=== PATIENT | female | born 1965 | race Caucasian/White ===

== ENCOUNTER 2017-01-21 13:45 | Emergency (ER) | payer MEDICAID, OTHER ==
[2017-01-21 14:15] VITALS: BP 114/58
[2017-01-21] MEDS ORDERED: Ketorolac 60 MG/2 ML SDV IM ONE (14:34)
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
== END 2017-01-21 14:54 | disposition home or self-care (01) ==
LOC: JD.ED 13:45
DX: M54.6 Pain in thoracic spine (principal); M54.5 Low back pain; F17.210 Nicotine dependence, cigarettes, uncomplicated; Z88.5 Allergy status to narcotic agent
CPT/HCPCS: 96372; 99283; J1885

== ENCOUNTER 2017-02-13 14:15 | Emergency (ER) | payer SELFPAY ==
[2017-02-13 14:31] VITALS: BP 124/69
[2017-02-13] MEDS ORDERED: Ketorolac 60 MG/2 ML SDV IM ONE (14:53)
[2017-02-13] MEDS ORDERED: predniSONE 20 MG Tab PO ONE (14:53)
[2017-02-13] MEDS ORDERED: Cyclobenzaprine 10 MG Tab PO ONE (14:53)
[2017-02-13] MEDS ORDERED: HYDROmorphone 1 MG/ML Syringe IM ONE (14:53)
--- NOTE | 2017-02-13 15:02 | EDM.PDOC ---
ED HPI GENERAL MEDICAL PROBLEM - General Chief Complaint: Back Pain or Injury Stated Complaint: BACK PAIN Time Seen by Provider: 02/13/17 14:45 Source of Information: Reports: Patient History Limitations: Reports: No Limitations - History of Present Illness INITIAL COMMENTS - FREE TEXT/NARRATIVE: Patient is a 51-year-old female with a history herniated disc to the lumbar spine. States approximately 3 weeks ago while working at [employer] she developed pain to the right side of her low back. She was seen in the ED and diagnosed with a muscle strain. Prescribed flexeril and hydrocodone. Since then the pain has not improved but has worsened. Pain is mostly now to left side of her lower back. Pain is worsened with palpation and movement. She has intermittent pain running down the posterior aspect of the left leg. She denies any saddle anesthesia, incontinence to urine or stool, weakness, altered walking, or any concerning neurological deficits. She took the full course of Flexeril as prescribed. She continues to take hydrocodone intermittently for pain. She is also taking ibuprofen. She presents today because of worsening pain. Left Lower Back Pain Score (Numeric/FACES): 8 - Related Data Allergies Allergy/AdvReac Type Severity Reaction Status Date / Time acetaminophen [From Vicodin] Allergy Itching Verified 02/13/17 14:32 hydrocodone [From Vicodin] Allergy Itching Verified 02/13/17 14:32 naproxen Allergy Tachycardia Verified 01/01/16 17:29 Home Meds: Home Meds SUMAtriptan [Imitrex] 10 mg PO ASDIRECTED PRN 01/21/17 [History] Cyclobenzaprine [Flexeril] 10 mg PO TID PRN #15 tablet 02/13/17 [Rx] Prednisone [IMW: predniSONE] 40 mg PO WITHBREAKFAST #10 tab 02/13/17 [Rx] Past Medical History Musculoskeletal History: Reports: Back Pain, Chronic Psychiatric History: Reports: Anxiety - Past Surgical History Female Surgical History: Reports: Tubal Ligation Social & Family History - Tobacco Use Smoking Status *Q: Current Every Day Smoker Years of Tobacco use: 30 Packs/Tins Daily: 0.5 - Caffeine Use Caffeine Use: Reports: Coffee - Recreational Drug Use Recreational Drug Use: No ED ROS GENERAL - Review of Systems Review Of Systems: ROS reveals no pertinent complaints other than HPI. ED EXAM,LOWER BACK PAIN/INJURY - Physical Exam Exam: See Below Exam Limited By: No Limitations General Appearance: Alert, WD/WN, Mild Distress Ears: Hearing Grossly Normal Nose: Normal Inspection Throat/Mouth: Normal Voice, No Airway Compromise Neck: Normal Inspection, Supple Respiratory/Chest: No Respiratory Distress, Lungs Clear, Normal Breath Sounds, No Accessory Muscle Use Cardiovascular: Normal Peripheral Pulses, Regular Rate, Rhythm, No Murmur GI/Abdominal: Normal Bowel Sounds, Soft, Non-Tender, No Organomegaly, No Distention Back Exam: Normal Inspection, Decreased Range of Motion (Secondary to pain in the low back), Other (No vertebral tenderness noted on palpation. Pain noted to the left lower back with palpation along the SI joint. Straight leg left and right were both negative. No sensory motor deficits noted.) Extremities: Normal Inspection, Normal Range of Motion, Non-Tender, No Pedal Edema, Normal Capillary Refill Neurological: Alert, Normal Mood/Affect, Normal Dorsiflexion, CN II-XII Intact, Normal Plantar Flexion, Normal Gait, No Motor/Sensory Deficits, Oriented x 3 Psychiatric: Normal Affect, Normal Mood Skin Exam: Warm, Dry, Intact, Normal Color Course - Vital Signs Last Recorded V/S: Last Vital Signs Temp 98 F 02/13/17 14:28 Pulse 89 02/13/17 14:28 Resp 16 02/13/17 14:28 BP 124/69 02/13/17 14:28 Pulse Ox 100 02/13/17 14:28 - Orders/Labs/Meds Meds: Medications Discontinued Medications Generic Name Dose Route Start Last Admin Trade Name Jasonq PRN Reason Stop Dose Admin Cyclobenzaprine HCl 10 mg 02/13/17 14:53 02/13/17 15:00 Flexeril PO 02/13/17 14:54 10 mg ONETIME ONE Administration Hydromorphone HCl 0.5 mg 02/13/17 14:53 02/13/17 15:02 Dilaudid IM 02/13/17 14:54 0.5 mg ONETIME ONE Administration Ketorolac Tromethamine 60 mg 02/13/17 14:53 02/13/17 15:01 Toradol IM 02/13/17 14:54 60 mg ONETIME ONE Administration Prednisone 40 mg 02/13/17 14:53 02/13/17 15:00 Prednisone PO 02/13/17 14:54 40 mg ONETIME ONE Administration - Re-Assessments/Exams Free Text/Narrative Re-Assessment/Exam: Ordered Dilaudid 0.5 mg IM, Toradol 60 mg IM, Flexeril 10 mg by mouth, and prednisone 40 mg by mouth. Pain improved. She is ready to be discharged home. Discharge instructions as documented. Departure - Departure Time of Disposition: 14:58 Disposition: Home, Self-Care 01 Condition: Good Clinical Impression: Sacroiliac joint dysfunction of left side Left-sided low back pain with left-sided sciatica Qualifiers: Chronicity: acute Qualified Code(s): M54.42 - Lumbago with sciatica, left side - Discharge Information Prescriptions: Cyclobenzaprine [Flexeril] 10 mg PO TID PRN #15 tablet PRN Reason: Spasms Prednisone [IMW: predniSONE] 40 mg PO WITHBREAKFAST #10 tab Instructions: Back Pain, Adult, Sciatica, [id number] Referrals: Hosea Roman MD [Primary Care Provider] - Forms: ED Department Discharge, ED Return to Work/School Form Additional Instructions: Take the Flexeril and prednisone as prescribed. Utilize ibuprofen as needed for pain. Do not exceed 2400mg in a 24-hour period. Take the medications with food and water. Refrain from any activities that cause worsening pain. Follow-up with her PCP in the next week for reevaluation. MRI of your low back may be required along with physical therapy. No driving today since receiving a sedative medication. No driving while taking the Flexeril. Return to the ED for any new or worsening symptoms.
== END 2017-02-13 15:40 | disposition home or self-care (01) ==
LOC: JD.ED 14:15
DX: M54.42 Lumbago with sciatica, left side (principal); M53.3 Sacrococcygeal disorders, not elsewhere classified; F41.9 Anxiety disorder, unspecified; F17.210 Nicotine dependence, cigarettes, uncomplicated; Z88.5 Allergy status to narcotic agent; Z88.8 Allergy status to other drugs, medicaments and biological substances; Z79.899 Other long term (current) drug therapy; Z98.51 Tubal ligation status
CPT/HCPCS: 96372; 99283; A9270; J1170; J1885

== ENCOUNTER 2017-09-19 10:16 | Emergency (ER) | payer MEDICAID, OTHER ==
[2017-09-19 10:38] VITALS: BP 126/76
[2017-09-19] MEDS ORDERED: Sodium Chloride 0.9% 10 ML Syringe FLUSH PRN (11:08)
[2017-09-19] MEDS ORDERED: Ketorolac 60 MG/2 ML SDV IM ONE (11:24)
--- NOTE | 2017-09-19 11:24 | EDM.PDOC ---
ED HPI GENERAL MEDICAL PROBLEM - General Chief Complaint: Back Pain or Injury Stated Complaint: BACK PAIN Time Seen by Provider: 09/19/17 10:32 Source of Information: Reports: Patient History Limitations: Reports: No Limitations - History of Present Illness INITIAL COMMENTS - FREE TEXT/NARRATIVE: The patient presents with low back pain. She has chronic low back. She has a bulging disc per MRI. She started having more pain yesterday and it has gotten worse. She has no numbness or weakness. She has no bowel or bladder problems. She did not do anything to hurt he back but she does stand a lot at work. She had a slight cough. Onset: Gradual Duration: Day(s): (Yesterday) Location: Reports: Back Quality: Reports: Sharp Severity: Severe Improves with: Reports: Immobilization Worsens with: Reports: Movement Context: Reports: Activity (Working) Associated Symptoms: Reports: No Other Symptoms Back Pain Score (Numeric/FACES): 10 - Related Data Allergies Allergy/AdvReac Type Severity Reaction Status Date / Time acetaminophen [From Vicodin] Allergy Itching Verified 09/19/17 10:39 hydrocodone [From Vicodin] Allergy Itching Verified 09/19/17 10:39 tramadol Allergy Itching Verified 09/19/17 10:39 naproxen AdvReac Tachycardia Verified 09/19/17 11:12 Home Meds: Home Meds Cyclobenzaprine [Flexeril] 10 mg PO TID PRN #15 tablet 02/13/17 [Rx] Gabapentin [Neurontin] 600 mg PO DAILY 09/19/17 [History] busPIRone [Buspar] 15 mg PO DAILY 09/19/17 [History] oxyCODONE HCl/Acetaminophen [Percocet 5-325 mg Tablet] 1 - 2 each PO Q6HR PRN # 20 tablet 09/19/17 [Rx] Past Medical History HEENT History: Reports: Impaired Vision Musculoskeletal History: Reports: Back Pain, Chronic Psychiatric History: Reports: Anxiety - Past Surgical History Female Surgical History: Reports: Tubal Ligation Social & Family History - Tobacco Use Smoking Status *Q: Current Every Day Smoker Years of Tobacco use: 25 Packs/Tins Daily: 1 - Caffeine Use Caffeine Use: Reports: Coffee - Recreational Drug Use Recreational Drug Use: No ED ROS GENERAL - Review of Systems Review Of Systems: See Below Constitutional: Reports: No Symptoms HEENT: Reports: No Symptoms Respiratory: Reports: No Symptoms Cardiovascular: Reports: No Symptoms Endocrine: Reports: No Symptoms GI/Abdominal: Reports: No Symptoms : Reports: No Symptoms Musculoskeletal: Reports: Back Pain Skin: Reports: No Symptoms Neurological: Reports: No Symptoms ED EXAM,LOWER BACK PAIN/INJURY - Physical Exam Exam: See Below Exam Limited By: No Limitations General Appearance: Alert, No Apparent Distress Ears: Normal External Exam Nose: Normal Inspection Head: Atraumatic, Normocephalic Neck: Normal Inspection Respiratory/Chest: No Respiratory Distress Back Exam: Other (Pain upon palpation to the left lower back.) Extremities: Normal Inspection Neurological: No Motor/Sensory Deficits DTR - Lower Extremities: 2+: Knee (L) Course - Vital Signs Last Recorded V/S: Last Vital Signs Temp 98.6 F 09/19/17 10:33 Pulse 82 09/19/17 10:33 Resp 16 09/19/17 10:33 BP 126/76 09/19/17 10:33 Pulse Ox 98 09/19/17 10:33 - Orders/Labs/Meds Orders: Active Orders 24 hr Category Date Time Status Cardiac Monitoring [RC] . DIRECTED Care 09/19/17 11:08 Inactive EKG Documentation Completion [RC] STAT Care 09/19/17 11:09 Inactive Peripheral IV Care [RC] . DIRECTED Care 09/19/17 11:09 Inactive Chest 1V Frontal [CR] Stat Exams 09/19/17 11:09 Taken Meds: Medications Discontinued Medications Generic Name Dose Route Start Last Admin Trade Name Freq PRN Reason Stop Dose Admin Sodium Chloride 10 ml 09/19/17 11:08 Saline Flush FLUSH ASDIRECTED PRN Keep Vein Open - Re-Assessments/Exams Free Text/Narrative Re-Assessment/Exam: 09/19/17 11:23 I ordered a shot of toradol 60 mg IM and I will give her some hydrocodone. 09/19/17 11:25 Her CXR looks good. I will have to give her percocet because hydrocodone she reacts to. Departure - Departure Time of Disposition: 11:30 Disposition: Home, Self-Care 01 Condition: Good Clinical Impression: Lumbar back pain Qualifiers: Chronicity: acute Back pain laterality: right Sciatica presence: without sciatica Qualified Code(s): M54.5 - Low back pain Left-sided low back pain with left-sided sciatica Qualifiers: Chronicity: acute Qualified Code(s): M54.42 - Lumbago with sciatica, left side - Discharge Information Prescriptions: oxyCODONE HCl/Acetaminophen [Percocet 5-325 mg Tablet] 1 - 2 each PO Q6HR PRN # 20 tablet PRN Reason: Pain Referrals: Hosea Roman MD [Primary Care Provider] - Forms: ED Department Discharge Additional Instructions: Take your medication as prescribed and motrin for the pain. You may also use the percocet. Please return if you are worse. - My Orders Last 24 Hours: My Active Orders 09/19/17 11:08 Cardiac Monitoring [RC] . DIRECTED 09/19/17 11:09 EKG Documentation Completion [RC] STAT Peripheral IV Care [RC] . DIRECTED Chest 1V Frontal [CR] Stat - Assessment/Plan Last 24 Hours: My Active Orders 09/19/17 11:08 Cardiac Monitoring [RC] . DIRECTED 09/19/17 11:09 EKG Documentation Completion [RC] STAT Peripheral IV Care [RC] . DIRECTED Chest 1V Frontal [CR] Stat
--- NOTE | 2017-09-19 12:10 | CR ---
Chest: Portable view of the chest was obtained. Comparison: Prior chest x-ray of 01/01/16. Slight atelectasis within the right lung base. Lungs otherwise are clear. Heart size and mediastinum are normal. Bony structures are grossly intact. Impression: 1. Slight atelectasis. Nothing acute is otherwise seen on portable chest x-ray. Diagnostic code #2
== END 2017-09-19 11:40 ==
LOC: JD.ED 10:16
DX: M54.42 Lumbago with sciatica, left side (principal); F17.210 Nicotine dependence, cigarettes, uncomplicated; Z88.8 Allergy status to other drugs, medicaments and biological substances; Z88.5 Allergy status to narcotic agent; Z79.899 Other long term (current) drug therapy
CPT/HCPCS: 71045; 96372; 99283; J1885